=== PATIENT | male | born 1995 | race Caucasian/White ===

== ENCOUNTER → 2021-01-06 15:45 | Outpatient (BNVA) | payer OTHER, SELFPAY | PROVIDERS: Family Provider Nurse Practitioner Family; Visit Provider Specialist | DX: M25.562 Pain in left knee (principal) | CPT/HCPCS: 73560; 73565 ==

== ENCOUNTER → 2021-01-13 14:51 | Outpatient (BNVA) | payer OTHER, SELFPAY | PROVIDERS: Family Provider Nurse Practitioner Family; PCP Nurse Practitioner Family; Visit Provider Nurse Practitioner Family | DX: Z20.822 Contact with and (suspected) exposure to COVID-19 (principal); M25.562 Pain in left knee; G89.29 Other chronic pain; J22 Unspecified acute lower respiratory infection; R06.02 Shortness of breath | CPT/HCPCS: 87400 ==

== ENCOUNTER → 2021-01-14 12:00 | Outpatient (BNVA) | payer OTHER, SELFPAY | PROVIDERS: Family Provider Nurse Practitioner Family; PCP Nurse Practitioner Family; Visit Provider Nurse Practitioner Family | DX: Z20.822 Contact with and (suspected) exposure to COVID-19 (principal); M25.562 Pain in left knee; G89.29 Other chronic pain; J22 Unspecified acute lower respiratory infection; R06.02 Shortness of breath | CPT/HCPCS: 87635 ==

== ENCOUNTER → 2021-02-05 11:28 | Outpatient (BNVA) | payer OTHER, SELFPAY | PROVIDERS: Family Provider Nurse Practitioner Family; PCP Nurse Practitioner Family; Visit Provider Nurse Practitioner Family | DX: N20.0 Calculus of kidney (principal) | CPT/HCPCS: 81003; 87086 ==

== ENCOUNTER 2021-02-13 13:44 | Outpatient (CLI) | payer OTHER, SELFPAY ==
--- NOTE | 2021-02-13 13:15 | XRR_ITS ---
PROCEDURE INFORMATION: Exam: XR Abdomen Exam date and time: 02/13/2021 1:57 PM Age: 25 years old Clinical indication: Condition or disease; Kidney or ureter condition; Calculus (stone) in kidney; Additional info: N20.0 - calculus of kidney TECHNIQUE: Imaging protocol: XR of the abdomen. Views: Frontal supine view of the abdomen. 1 View. COMPARISON: CT abdomen pelvis w con* [id number] 01/26/2021 9:05 AM FINDINGS: Gastrointestinal tract: Normal. No bowel dilation. Organs: No renal calculi. Nonspecific 4 mm left pelvic calcification. Bones/joints: No acute findings. XR/XR KUB [id number] IMPRESSION: 4 mm pelvic calcification, possible distal ureteral or bladder calculus.
== END 2021-02-13 13:45 | disposition home or self-care (01) ==
LOC: RAD 13:47
PROVIDERS: PCP Nurse Practitioner Family; Visit Provider Urology
DX: N20.0 Calculus of kidney (principal)
CPT/HCPCS: 74018; 81003